=== PATIENT | female | born 1980 | race Caucasian/White ===

== ENCOUNTER 2018-11-09 03:07 | Outpatient (CLI) | payer MEDICAID, SELFPAY | END 2018-11-09 03:27 | PROVIDERS: PCP Student in an Organized Health Care Education/Training Program; Visit Provider Nurse Practitioner Family | DX: R69 Illness, unspecified (principal) ==

== ENCOUNTER 2019-03-16 20:26 | Emergency (ER) | payer MEDICAID, SELFPAY ==
[2019-03-16 20:32] VITALS: BP 130/80; PULSE 88; RESP 18; TEMP 36.8; O2SAT 97
--- NOTE | 2019-03-16 20:37 | ED.GENADUL_ITS ---
Discharge Plan Disposition Patient Disposition: HOME Condition: Good Discharge Details Chief Complaint: Laceration Clinical Impression: Avulsion of fingertip Primary Care Provider: Emily Gruber ED Provider: Chuy Pattersons and New Rx's Prescriptions: New ibuprofen 200 mg tablet 600 mg PO Q8H PRN (Reason: pain) Qty: 20 RF: 0 acetaminophen 500 mg tablet 1,000 mg PO Q8H PRN (Reason: pain) Qty: 20 RF: 0 Discharge Instructions Additional Instructions: Leave dressing on for the next 24 hours. May begin dressing change but try to leave the Xeroform in place. May remove Xeroform on Monday. Keep wound clean and dry. It should heal without issue as the nail matrix is intact. Follow-up with primary care as needed. Return to ED for signs of infection which include increasing pain, swelling, redness, fever. Referrals: Emily Gruber CRNA [Primary Care Provider] - Discharge Data Discharge Date/Time-TO BE ENTERED AT DEPARTURE: 03/16/19 21:44 Medical Decision Making A digital block with 2% lidocaine was done to the left index finger. Patient soaked her finger in saline. I then evaluated the wound more closely. She has essentially shaved off the distal part of her nail, nailbed and tip. However, it is quite superficial. There is no bony exposure whatsoever. There is no other injury present. Hand is otherwise neurovascularly intact. Xeroform dressing was applied. Patient instructed to leave the Xeroform on for 2 days. She may do a dressing change tomorrow and reapply new dressing while leaving Xeroform present. She may then remove the Xeroform and begin just simple dressing changes. The nail should grow back without difficulty as the matrix and cuticle are intact. She is asked to return to ED if there is any sign of infection. May use acetaminophen or ibuprofen as needed for pain. HPI General Mode of arrival: ambulatory . Date/Time Provider Initiated Documentation: 03/16/19 20:37 . Limitations to Documentation: no limitations . Information obtained by: patient and RN notes reviewed . HPI Narrative: Patient presents to ED with injury to her left index finger. Patient was cutting food with a brand-new sharp knife. She inadvertently sliced the tip of her left index finger. Bleeding is now controlled but she presents for evaluation. She is right-hand dominant. Related Data Home Medications Medication Instructions Recorded Confirmed acetaminophen 1,000 mg PO Q8H PRN #20 tab 03/16/19 ibuprofen 600 mg PO Q8H PRN #20 tab 03/16/19 Previous Rx's Medication Instructions Recorded acetaminophen 1,000 mg PO Q8H PRN #20 tab 03/16/19 ibuprofen 600 mg PO Q8H PRN #20 tab 03/16/19 Allergies Allergy/AdvReac Type Severity Reaction Status Date / Time Penicillins Allergy Unverified 03/16/19 20:36 General Stated Complaint: Laceration MARGO: 4 Review of Systems Musculoskeletal Denies tingling Integumentary/Breasts Reports wounds Neurologic Denies sensory deficit, Denies tingling and Denies paresthesias PFSH Social History Smoking/Tobacco Use Status: Former Tobacco Use Alcohol Intake: current Alcohol Intake frequency: a few times a week Substance use type: does not use Do you feel safe at home: Yes Do you feel safe in your relationship?: Yes Exam Const General: cooperative and comfortable Orientation: alert and oriented x3 Extrem Other: Left index finger shows injury to the tip with loss of nail present. No other injury noted. No bony exposure. Course Vital Signs Temperature 98.2 F 03/16/19 20:32 Pulse 88 03/16/19 20:32 Respiratory Rate 18 03/16/19 20:32 Blood Pressure 130/80 03/16/19 20:32 Pulse Oximetry 97 03/16/19 20:32 Temperature 98.2 F 03/16/19 20:32 Pulse 88 03/16/19 20:32 Respiratory Rate 18 03/16/19 20:32 Blood Pressure 130/80 03/16/19 20:32 Pulse Oximetry 97 03/16/19 20:32 Oxygen Delivery Method Room Air 03/16/19 20:32 Oxygen Flow Rate 0 03/16/19 20:32 Procedures Nerve Block Nerve Block 1: Local Anesthetic: Lidocaine 2% Amount of anesthesia used (mL): 2 Side: left Nerve Blocks: digital Procedure Successful: Yes Patient Tolerated Procedure: well Complications: none
[2019-03-16 21:36] VITALS: BP 130/80; PULSE 88; RESP 18; TEMP 36.8; O2SAT 97
== END 2019-03-16 21:44 | disposition home or self-care (01) ==
PROVIDERS: Emergency Provider Emergency Medicine; PCP Student in an Organized Health Care Education/Training Program
DX: S61.311A Laceration without foreign body of left index finger with damage to nail, initial encounter (principal); W26.0XXA Contact with knife, initial encounter
CPT/HCPCS: 99282

== ENCOUNTER 2019-04-02 21:36 | Emergency (ER) | payer MEDICAID, SELFPAY ==
[2019-04-02 21:46] VITALS: BP 142/88; PULSE 107; RESP 18; TEMP 37.8; O2SAT 99
--- NOTE | 2019-04-02 22:06 | ED.GENADUL_ITS ---
Discharge Plan Disposition Patient Disposition: HOME Condition: Good Discharge Details Chief Complaint: Abd Prob Clinical Impression: Abdominal pain Primary Care Provider: Ham Gruber ED Provider: Chuy Patterson Meds and New Rx's Prescriptions: No Action ibuprofen 200 mg tablet 600 mg PO Q8H PRN (Reason: pain) Qty: 20 RF: 0 acetaminophen 500 mg tablet 1,000 mg PO Q8H PRN (Reason: pain) Qty: 20 RF: 0 Discharge Instructions Instructions: Abdominal Pain (ED) Additional Instructions: Laboratory studies look fine. Urine is not infected. CT scan shows a normal appendix. There is some evidence of probable mesenteric adenitis which should resolve on its own. We will simply fluids to stay hydrated. Use ibuprofen or acetaminophen for pain. Follow-up with your primary care next week if not better. Return to ED if you develop worsening pain, fever, vomiting. Referrals: Ham Gruber NP [Primary Care Provider] - Discharge Data Discharge Date/Time-TO BE ENTERED AT DEPARTURE: 04/03/19 00:43 Medical Decision Making <Nilesh Marquez NP - Last Filed: 04/04/19 17:11> Patient presenting to the emergency department for chief complaint of abdominal pain. Patient reports that yesterday evening she started having what she felt was gas pains but this is become persistent throughout the day today. Patient does note some mild nausea. Patient denies any vomiting, lack of appetite states that pain is worse with standing position or movement along with bumpy car ride but lying flat does seem to alleviate pain. Physical exam is positive for tenderness at McBurney's point also periumbilical tenderness. Patient does have some guarding to the right lower quadrant, otherwise nondiagnostic unremarkable exam. Plan to check labs, urinalysis, and CT imaging of the abdomen for concern of possible early appendicitis. Patient is mildly tachycardic and has temp of 37.8 but otherwise is stable. Patient denies any need for pain medication pending results patient given Zofran for nausea. Review of labs showed no leukocytosis, unremarkable CMP, UA with trace leukocytes but otherwise nondiagnostic. Culture was reflexed due to 3-5 WBCs be given the patient is asymptomatic I do not feel that she is suffering from urinary tract infection. Plan to wait on culture. Patient tolerated p.o. intake of oral contrast. Patient pending CT imaging. <Chuy Patterson MD - Last Filed: 04/03/19 00:35> Patient signed out to me for follow-up of CT scan. She had presented with abdominal pain for 1 day periumbilical and right lower quadrant in nature. No other associated symptoms. She has not required pain medication here. CT scan shows a right adrenal mass which is likely a myolipoma or lipoma and no further imaging is required per radiology. There is a physiologic 15 mm follicular cyst in the right ovary. The appendix is normal. There is some prominence of the mesenteric node with some mesenteric stranding suspicious for mild mesenteric lymphadenitis. This may be the source of the patient's discomfort. I have discussed all findings with the patient. Recommend using acetaminophen and ibuprofen for discomfort. Stay hydrated. Follow-up with primary care next week if not better. Return to ED for worsening pain, vomiting, fever, other concerns. Lab Data Lab results reviewed: Yes I reviewed the patient's lab results. HPI <Nilesh Marquez NP - Last Filed: 04/04/19 17:11> General Mode of arrival: ambulatory . Date/Time Provider Initiated Documentation: 04/02/19 21:52 . Limitations to Documentation: no limitations . Information obtained by: patient and RN notes reviewed . History of Present Illness 38 year old F presents to the emergency department with the chief complaint of Abdominal pain, described as moderate, with intensity rated at 6. Quality is described as aching and sharp, and is localized to the abdomen . Patient started experiencing this day(s) (1) and it has been constant. No relieving factors improve symptom(s), Patient notes no other symptoms.. Patient did receive the following treatments prior to arrival, none Related Data Home Medications Medication Instructions Recorded Confirmed acetaminophen 1,000 mg PO Q8H PRN #20 tab 03/16/19 04/02/19 ibuprofen 600 mg PO Q8H PRN #20 tab 03/16/19 04/02/19 Previous Rx's Medication Instructions Recorded acetaminophen 1,000 mg PO Q8H PRN #20 tab 03/16/19 ibuprofen 600 mg PO Q8H PRN #20 tab 03/16/19 Allergies Allergy/AdvReac Type Severity Reaction Status Date / Time Penicillins Allergy Severe Hives Unverified 04/02/19 21:51 General Stated Complaint: Abd Prob MARGO: 3 Review of Systems <Nilesh Marquez NP - Last Filed: 04/04/19 17:11> Constitutional Denies chills, Denies fever(s) and Denies poor appetite Cardiovascular Denies chest pain and Denies dyspnea Respiratory Denies cough and Denies dyspnea Gastrointestinal Reports as per HPI, Reports abdominal pain, Denies melena, Denies change in bowel habits, Denies constipation, Reports cramping, Denies diarrhea, Reports nausea and Denies vomiting Genitourinary Denies dysuria, Denies pelvic pain, Denies urinary urgency and Denies vaginal discharge Integumentary/Breasts Denies rash PFSH <Nilesh Marquez NP - Last Filed: 04/04/19 17:11> Social History Smoking/Tobacco Use Status: Former Tobacco Use Alcohol Intake: current Alcohol Intake frequency: a few times a week Alcohol type: beer Drug use: Never Substance use type: does not use Do you feel safe at home: Yes Do you feel safe in your relationship?: Yes Exam <Nilesh Marquez NP - Last Filed: 04/04/19 17:11> Const General: cooperative Orientation: alert, awake and oriented x3 Resp Effort & Inspection: normal respiratory effort and able to speak in complete sentences Auscultation: clear to auscultation bilaterally Cardio Rate: regular rate Rhythm: regular rhythm Heart Sounds: S1 normal, S2 normal, no click, no gallops, no murmurs and no rubs GI Palpation: soft, no hepatosplenomegaly, not firm, guarding in the RLQ, no masses, no pulsatile masses, not rigid, no splenomegaly and tender at McBurney's point and periumbilically; Kate's sign negative, with no rebound tenderness and Rovsing's sign negative Auscultation: normal bowel sounds Back/Spine/Pelvis Back: no CVA tenderness Neuro General: alert, awake, oriented x3, gait normal and moves all extremities Course <Nilesh Marquez NP - Last Filed: 04/04/19 17:11> Vital Signs Temperature 37.8 C H 04/02/19 21:46 Pulse 107 H 04/02/19 21:46 Respiratory Rate 18 04/02/19 21:46 Blood Pressure 142/88 H 04/02/19 21:46 Pulse Oximetry 99 04/02/19 21:46 Temperature 37.8 C H 04/02/19 21:46 Temperature Source Skin 04/02/19 21:46 Pulse 107 H 04/02/19 21:46 Respiratory Rate 18 04/02/19 21:46 Blood Pressure 142/88 H 04/02/19 21:46 Blood Pressure Position Sitting 04/02/19 21:46 Pulse Oximetry 99 04/02/19 21:46 Oxygen Delivery Method Room Air 04/02/19 21:46 Oxygen Flow Rate 0 04/02/19 21:46 Pain Level 7 04/02/19 21:46 Sign Out <Nilesh Marquez NP - Last Filed: 04/04/19 17:11> Sign Out Data: Sign Out Comment: Patient signed out to Dr. Patterson pending CT imaging results, any further treatment or stabilization as needed. Last updated by Nilesh Marquez NP at 04/02/19 23:44
[2019-04-02 22:45] LABS: Abs Immature Grans 0.04 k/cumm (0.0-0.09); Absolute Basophil Count 0.01 k/cumm (0.0-0.2); Absolute Eosinophil Count 0.11 k/cumm (0.0-0.7); Absolute Lymphocyte Count 2.46 k/cumm (1.2-3.4); Absolute Monocyte Count 0.65 k/cumm (0.11-0.7); Absolute Neutrophil Count 6.23 k/cumm (1.2-6.7); Basophils % 0.1; Eosinophils % 1.2; HCT 38.7 % (36.0-46.0); HGB 12.3 g/dL (12.0-15.5); Immature Grans % 0.4; Lymphocytes % 25.9; Mean Corp. HGB Concentration 31.8 g/dL (32.0-36.0); Mean Corpuscular Hemoglobin 27.7 pg (27.0-33.0); Mean Corpuscular Volume 87.2 fL (80-95); Mean Platelet Volume 11.1 fL (8.0-11.0); Monocytes % 6.8; Neutrophils % 65.6; Platelet Count 238 x1000/uL (130-400); RBC 4.44 m/cumm (4.00-5.20); RBC Distribution Width 14.2 % (11.7-14.6)
[2019-04-02 22:47] LABS: Bilirubin Negative (Negative); Blood Negative (Negative); Clarity Clear (Clear); Glucose Negative (Negative); Ketones Negative (Negative); Leukocyte Esterase Trace (Negative); Nitrite Negative (Negative); Specific Gravity 1.025 (1.005-1.025); Urobilinogen 0.2 EU/dL (Up TO 0.2)
[2019-04-02 22:56] LABS: Bacteria Rare HPF (Negative); C & S Indicated? Yes; Casts Negative LPF (Negative); Crystals Negative HPF (Negative); Epithelial Cells Few HPF (Negative); Mucus Negative (Negative); Other Cells Negative (Negative); RBC 0-2 (0-2)
[2019-04-02 23:02] LABS: ALT 28 U/L (14-59); AST 15 U/L (15-37); Albumin 3.7 g/dL (3.4-5.0); Alkaline Phosphatase 101 U/L (46-116); Anion Gap 9.8 mmol/L (3-11); BUN 15 mg/dL (7-18); Bilirubin, Total 0.2 mg/dL (0.2-1.0); CO2 25.2 mmol/L (21.0-32.0); CREATININE 0.85 mg/dL (0.55-1.02); Chloride 104 mmol/L (98-107); Glucose 103 mg/dL (70-100); Lipase 85 U/L (73-393); Potassium 4.1 mmol/L (3.5-5.1); Sodium 139 mmol/L (136-145); Total Protein 8.1 g/dL (6.4-8.2)
[2019-04-02] MEDS: Omnipaque 350 MG/ML 50 ML BTL PO (23:43)
[2019-04-02] MEDS: Omnipaque 350 MG/ML 100 ML BTL IJ (23:43)
[2019-04-02] MEDS: Breeza Beverage 473 ML BTL PO (23:44)
--- NOTE | 2019-04-02 23:45 | DI.CT_ITS ---
SYMPTOM/DIAGNOSIS: ABD PAIN, PERIUMBILICAL, RLQ, NAUSEA ABDOMEN AND PELVIC CT: CT scan of the abdomen and pelvis was performed following the uneventful administration of intravenous and oral contrast material. No acute findings are seen in the lung bases. The liver is normal in size. No hepatic mass is seen. The portal, superior mesenteric and splenic veins are patent. The gallbladder is negative. There is no biliary ductal dilatation. The pancreas and spleen are unremarkable. There does appear to be a 1.2 cm. fat density right adrenal mass, most suggestive of a lipoma or adrenal myolipoma. The kidneys show normal and symmetric enhancement. No evidence of a solid renal mass or obstruction. The urinary bladder is intact. The reproductive organs are unremarkable. The abdominal aorta is of normal caliber. No significant abdominal or pelvic ascites or pneumoperitoneum is seen. There may be mildly prominent lymph nodes in the mesentery. The bowel shows no evidence of obstruction or inflammation. There is a normal appendix present. No acute osseous abnormality is identified. IMPRESSION: 1. Normal appendix. 2. Question of mildly prominent lymph nodes in the mesentery. Mesenteric adenitis or mesenteritis cannot be excluded.
--- NOTE | 2019-04-03 00:19 | DI.VRAD_ITS ---
EXAM: CT Abdomen and Pelvis With Contrast EXAM DATE/TIME: 04/02/2019 10:06 PM CLINICAL HISTORY: 38 years old, female; Localized; Other: Rlq and periumbilical; Patient HX: Nausea and abdominal pain since yesterday TECHNIQUE: Imaging protocol: Computed tomography images of the abdomen and pelvis with intravenous contrast. Radiation optimization: All CT scans at this facility use at least one of these dose optimization techniques: automated exposure control; mA and/or kV adjustment per patient size (includes targeted exams where dose is matched to clinical indication); or iterative reconstruction. Contrast material: OMNIPAQUE 350; Contrast volume: 100 ml; Contrast route: IV RAC; COMPARISON: No relevant prior studies available. FINDINGS: Lungs: Visualized lung bases are clear. Heart: Heart size normal. Liver: Normal size and contour. No mass lesions. Gallbladder and bile ducts: Normal. No calcified stones. No ductal dilation. Pancreas: Normal. No inflammatory changes or ductal dilation. Spleen: Normal. No splenomegaly. Adrenals: The left adrenal gland is normal. There is a 12 mm fat density lesion in the right adrenal gland with punctate calcification. This is consistent with a benign adrenal myelolipoma or lipoma. No further imaging assessment is required. Kidneys and ureters: Normal. No hydronephrosis or hydroureter. No urinary tract stones are identified. Stomach and bowel: The visualized distal esophagus and stomach are normal. The small bowel is normal with no evidence of obstruction. No acute colonic abnormalities. Appendix: The appendix is normal in caliber and demonstrates no evidence of appendicitis. Intraperitoneal space: No free fluid or air. Vasculature: Normal. No abdominal aortic aneurysm. Lymph nodes: Mildly prominent central mesenteric nodes with faint mesenteric stranding suspicious for mild mesenteric adenitis/mesenteritis. No associated fluid collections or bowel wall abnormalities. Bladder: Unremarkable as visualized. Reproductive: 15 mm follicle in the right ovary, within physiologic range. The uterus and left ovary were unremarkable. Bones/joints: No acute osseous abnormalities. Soft tissues: Unremarkable. IMPRESSION: 1. Mildly prominent central mesenteric nodes with faint mesenteric stranding suspicious for mild mesenteric adenitis/mesenteritis. No associated fluid collections or bowel wall abnormalities. 2. Normal appendix. 3. 12 mm fat density lesion in the right adrenal gland consistent with benign adrenal lipoma or myelolipoma. No further imaging assessment is required. Dictated and Authenticated by: Huey Guzman MD. Ordering:SVETA Galloway MD
[2019-04-03 00:40] VITALS: BP 132/76; PULSE 72; RESP 15; TEMP 36.2; O2SAT 99
== END 2019-04-03 00:43 | disposition home or self-care (01) ==
PROVIDERS: Nurse Practitioner Family; Emergency Provider Emergency Medicine; PCP Nurse Practitioner Family
DX: R10.815 Periumbilic abdominal tenderness (principal); R10.31 Right lower quadrant pain; R11.0 Nausea; N83.01 Follicular cyst of right ovary
CPT/HCPCS: 36415; 80053; 83690; 99285; 74177; 81003; 81015; 85025; 87086; 99284; J3490; Q9967

== ENCOUNTER 2019-05-31 10:48 | Outpatient (REF) | payer MEDICAID, SELFPAY ==
[2019-05-31 13:20] LABS: HCT 39.7 % (36.0-46.0); HGB 12.4 g/dL (12.0-15.5); Mean Corp. HGB Concentration 31.2 g/dL (32.0-36.0); Mean Corpuscular Hemoglobin 27.3 pg (27.0-33.0); Mean Corpuscular Volume 87.4 fL (80-95); Mean Platelet Volume 11.4 fL (8.0-11.0); Platelet Count 252 x1000/uL (130-400); RBC 4.54 m/cumm (4.00-5.20); RBC Distribution Width 14.3 % (11.7-14.6); White Blood Cell Count 6.91 k/cumm (4.4-10.8)
[2019-05-31 13:45] LABS: ALT 29 U/L (14-59); AST 13 U/L (15-37); Albumin 3.9 g/dL (3.4-5.0); Alkaline Phosphatase 108 U/L (46-116); Anion Gap 9.4 mmol/L (3-11); BUN 15 mg/dL (7-18); Bilirubin, Total 0.3 mg/dL (0.2-1.0); CO2 26.6 mmol/L (21.0-32.0); CREATININE 0.69 mg/dL (0.55-1.02); Calcium 9.4 mg/dL (8.5-10.1); Calculated LDL 94 mg/dL; Chloride 104 mmol/L (98-107); Cholesterol 159 mg/dL (50-200); Glucose 99 mg/dL (70-100); HDL Cholesterol 52 mg/dL (40-60); Sodium 140 mmol/L (136-145); Total Protein 7.9 g/dL (6.4-8.2); Triglyceride 67 mg/dL (30-150)
== END 2019-05-31 11:08 ==
LOC: NCHCN 10:48
PROVIDERS: PCP Nurse Practitioner Family; Visit Provider Nurse Practitioner Family
DX: R00.2 Palpitations (principal); Z00.00 Encounter for general adult medical examination without abnormal findings
CPT/HCPCS: 80053; 80061; 85027; 84443

== ENCOUNTER 2019-06-03 11:45 | Outpatient (CLI) | payer MEDICAID, SELFPAY ==
--- NOTE | 2019-06-03 08:58 | HOLT_ITS ---
Holter Monitor Report Holter Monitor Note: This is a 48-hour Holter monitor ordered for the indication of palpitations. ?The patient was in normal sinus rhythm for the majority of the recording time. Heart rate ranged from 59 bpm to 118 bpm with an average of 78 bpm ?There were no episodes of supraventricular tachycardia. There were rare (less than 1%) premature atrial contractions. There were no runs of multiple PACs in a row. ?There were no episodes of ventricular tachycardia. There were 2 single ventricular ectopic beats recorded ?There were no episodes of atrial fibrillation, no pauses greater than 3 seconds and no periods of high degree heart block. ?Patient diary events were associated with sinus rhythm and sinus tachycardia. Date of service: 06/06/19 Time of Service: 08:27 CC: Dictated by: VIC HALL MD Dictated:: [id number] <Electronically signed by Vic Hall M.D.> 06/06/19828
== END 2019-06-03 12:05 ==
PROVIDERS: PCP Nurse Practitioner Family; Visit Provider Nurse Practitioner Family
DX: R00.2 Palpitations (principal); I49.1 Atrial premature depolarization; I49.3 Ventricular premature depolarization
CPT/HCPCS: 93225

== ENCOUNTER 2019-06-05 16:08 | Outpatient (CLI) | payer MEDICAID, SELFPAY | END 2019-06-05 16:28 | PROVIDERS: PCP Student in an Organized Health Care Education/Training Program; Visit Provider Nurse Practitioner Family | DX: R00.2 Palpitations (principal); I49.1 Atrial premature depolarization; I49.3 Ventricular premature depolarization | CPT/HCPCS: 93226 ==

== ENCOUNTER 2019-09-24 17:24 | Emergency (ER) | payer MEDICAID, SELFPAY ==
[2019-09-24] VITALS (32 sets, daily range): BP systolic 124–159; BP diastolic 66–95; PULSE 90–128; RESP 7–37; TEMP 36.5; O2SAT 93–100
--- NOTE | 2019-09-24 17:45 | DI.RAD_ITS ---
EXAM: XR CHEST 2V PA LATERAL CLINICAL HISTORY: Palpitations. TECHNIQUE: 2D digital imaging was performed. COMPARISON: No exams were available for comparison FINDINGS: LUNGS: Clear. No pleural abnormality seen. HEART: Normal. MEDIASTINUM: Normal. OTHER FINDINGS:Normal. BONE:Normal. IMPRESSION: No acute pulmonary findings.
--- NOTE | 2019-09-24 17:47 | ED.GENADUL_ITS ---
Discharge Plan Disposition Patient Disposition: HOME Condition: Good Discharge Details Chief Complaint: Palpitatns Clinical Impression: Palpitations, Atypical chest pain, History of anxiety Primary Care Provider: Ham Gruber ED Provider: Ilene Sierra Home Meds and New Rx's Prescriptions: Continued pantoprazole [Protonix] 40 MG tablet,delayed release (DR/EC) 40 mg PO QD 90 Days Qty: 90 RF: 1 ibuprofen 200 mg tablet 600 mg PO Q8H PRN (Reason: pain) Qty: 20 RF: 0 acetaminophen [Tylenol] 325 MG tablet 650 mg PO Q4H PRN PRNRF: 0 buspirone 5 mg Tablet 5 mg PO TID RF: 0 Discharge Instructions Instructions: Chest Pain (ED), Stress (ED), Anxiety (ED) Additional Instructions: Take the Ativan as needed and directed for feelings of anxiety or to help with sleep. Drink plenty of fluids and get plenty of rest. Call your primary care doctor's office tomorrow to schedule follow-up appointment for reevaluation within the next week. Return to the emergency department if you develop any worsening or new concerning symptoms. Stand Alone Forms: Work Release Discharge Data Discharge Physician: Ilene Sierra Medical Decision Making <Sameer Asher MD - Last Filed: 09/24/19 19:53> 39-year-old female presents from home with her . She is a history of palpitations in the past, they have worsened over the past day and a half. They are associated with anxiety and some increased stressors both at home and at work. She does not have significant chest pain and no shortness of breath. Initial pulse 123, approximately 105 while at rest. She is afebrile with normal oxygenation. Her exam is otherwise reassuring. I reviewed records including Holter monitor obtained in May 2019: Holter Monitor Note: This is a 48-hour Holter monitor ordered for the indication of palpitations. ?The patient was in normal sinus rhythm for the majority of the recording time. Heart rate ranged from 59 bpm to 118 bpm with an average of 78 bpm ?There were no episodes of supraventricular tachycardia. There were rare (less than 1%) premature atrial contractions. There were no runs of multiple PACs in a row. ?There were no episodes of ventricular tachycardia. There were 2 single ventricular ectopic beats recorded ?There were no episodes of atrial fibrillation, no pauses greater than 3 seconds and no periods of high degree heart block. ?Patient diary events were associated with sinus rhythm and sinus tachycardia. In the ER today, patient had IV access established, placed on a monitoring coordinator, given fluid bolus and referred for chest x-ray and laboratory testing. Differential diagnosis includes dehydration, electrolyte abnormality, ACS, must at least consider the possibility of PE although I feel this is unlikely. Chest x-ray without acute findings, see formal report. Laboratories: Urinalysis unremarkable. CBC with white count 8, hematocrit 40, platelets 252, sodium 140, potassium 3.4, chloride 103, bicarb 27, BUN 16, creatinine 0.7. LFTs unremarkable. Troponin negative. TSH 0.81. D-dimer is elevated at 836. I have ordered a CAT scan of the chest and patient also has a second/repeat troponin pending. I will sign out the case out to Dr. Sierra. Please see her note regarding details of the additional diagnostic findings. Lab Data Lab results reviewed: Yes I reviewed the patient's lab results. Labs: Laboratory Results - last 24 hr 09/24/19 09/24/19 09/24/19 17:35 17:35 17:35 WBC 8.98 RBC 4.74 Hgb 13.1 Hct 40.2 MCV 84.8 MCH 27.6 MCHC 32.6 RDW 14.8 H Plt Count 252 MPV 10.7 Immature Gran % 0.2 Neutrophils % 62.7 Lymphocytes % 28.2 Monocytes % 6.9 Eosinophils % 1.9 Basophils % 0.1 Absolute Neutrophils 5.63 Absolute Lymphocytes 2.53 Absolute Monocytes 0.62 Absolute Eosinophils 0.17 Absolute Basophils 0.01 Sodium 140 Potassium 3.4 L Chloride 103 Carbon Dioxide 27.5 Anion Gap 9.5 BUN 16 Creatinine 0.79 Estimated GFR/1.73 m2 >= 60.00 Glucose 89 Calcium 9.3 Magnesium 1.9 Total Bilirubin 0.2 AST 17 ALT 36 Alkaline Phosphatase 111 Troponin I < 0.05 Total Protein 8.3 H Albumin 4.1 Urine Color Urine Clarity Urine pH Ur Specific [place] Urine Protein Urine Ketones Urine Blood Urine Nitrite Urine Bilirubin Urine Urobilinogen Ur Leukocyte Esterase Urine Glucose 09/24/19 17:35 WBC RBC Hgb Hct MCV MCH MCHC RDW Plt Count MPV Immature Gran % Neutrophils % Lymphocytes % Monocytes % Eosinophils % Basophils % Absolute Neutrophils Absolute Lymphocytes Absolute Monocytes Absolute Eosinophils Absolute Basophils Sodium Potassium Chloride Carbon Dioxide Anion Gap BUN Creatinine Estimated GFR/1.73 m2 Glucose Calcium Magnesium Total Bilirubin AST ALT Alkaline Phosphatase Troponin I Total Protein Albumin Urine Color Yellow Urine Clarity Clear Urine pH 6.0 Ur Specific [place] 1.010 Urine Protein Negative Urine Ketones Negative Urine Blood Negative Urine Nitrite Negative Urine Bilirubin Negative Urine Urobilinogen 0.2 Ur Leukocyte Esterase Negative Urine Glucose Negative ECG Data Attestation: I personally reviewed and interpreted this ECG (s) as follows: Interpretation: Sinus tachycardia, rate of 111, the QRS is narrow, there is no ST segment elevation present, there is isolated T wave inversion in lead III <Ilene Sierra DO - Last Filed: 09/24/19 22:45> 1999 --please see Dr. Asher's note for initial presentation, exam and plan. 39-year-old female with a history of asthma and anxiety recently started on BuSpar within the past month who presents with intermittent palpitations, chest pain or shortness of breath today. She states she has had ongoing palpitations for 10 years, but states this was worse with the chest pain today. She does admit to a large amount of stress with her job, her 's job and 5 kids at home. She states she has not been sleeping well. Denies alcohol or drug use. Heart rate on arrival 120s. EKG noted sinus tach but no acute ST ischemic changes. D-dimer elevated and referred for CT chest to rule out PE. Case endorsed to follow-up on repeat troponin and EKG and follow-up on CT results. 2139 --repeat EKG notes a rate of 102 and sinus tach with no acute ST ischemic changes. CT chest negative for PE or other acute findings. Repeat troponin negative. Patient reassessed -she states she feels better. During our conversation, patient became tearful as she was discussing that she came here to make sure everything was okay as she has family at home. Discussed that anxiety, dehydration, lack of sleep, and stress can cause any of the symptoms. Advised it would be beneficial to follow-up with her primary care doctor for further evaluation and consideration for stress test if symptoms persist or worsen. She was given a dose of Ativan here and had significant improvement. She was given 2 tabs for home to help with sleep as needed. She was advised to return here with any concerns. Medical Records Medical records reviewed: Yes I reviewed the patient's medical records. Imaging Data Radiologic Study: Radiologist's impression: XR Chest, 2 Views Exam date and time: 09/24/2019 6:03 PM Age: 39 years old Clinical indication: Other: Palpatations TECHNIQUE: Imaging protocol: XR of the chest Views: 2 views. COMPARISON: No relevant prior studies available. FINDINGS: Lungs: Unremarkable. No consolidation. Pleural space: Unremarkable. No pleural effusion. No pneumothorax. Heart/Mediastinum: Unremarkable. No cardiomegaly. Bones/joints: Unremarkable. IMPRESSION: No acute findings. CT Angiography Chest With Contrast Exam date and time: 09/24/2019 7:50 PM Age: 39 years old Clinical indication: Type not specified; Patient HX: Upper chest pain and discomfort for a month or so TECHNIQUE: Imaging protocol: Computed tomographic angiography of the chest with intravenous contrast. 3D rendering: MIP and/or 3D reconstructed images were created by the technologist. Radiation optimization: All CT scans at this facility use at least one of these dose optimization techniques: automated exposure control; mA and/or kV adjustment per patient size (includes targeted exams where dose is matched to clinical indication); or iterative reconstruction. Contrast material: OMNIPAQUE 350; Contrast volume: 100 ml; Contrast route: IV; COMPARISON: CR XR CHEST 2V PA LATERAL 09/24/2019 6:03 PM FINDINGS: Pulmonary arteries: There is adequate opacification of blood within the main pulmonary outflow tract, right and left pulmonary arteries and major lobar and segmental branches to both lungs with no pulmonary embolism detected. Aorta: Unremarkable. No aortic aneurysm. No aortic dissection. Lungs: Unremarkable. No consolidation. No masses. Pleural space: Unremarkable. No pneumothorax. No pleural effusion. Heart: Unremarkable. No cardiomegaly. No pericardial effusion. Lymph nodes: Unremarkable. No enlarged lymph nodes. Bones/joints: Unremarkable. No acute fracture. Soft tissues: Unremarkable. IMPRESSION: No acute pulmonary artery embolism is identified. Lab Data Lab results reviewed: Yes I reviewed the patient's lab results. Labs: Laboratory Tests Range/Units 09/24/19 09/24/19 09/24/19 17:35 17:35 17:35 WBC (4.4-10.8) k/cumm 8.98 RBC (4.00-5.20) m/cumm 4.74 Hgb (12.0-15.5) g/dL 13.1 Hct (36.0-46.0) % 40.2 MCV (80-95) fL 84.8 MCH (27.0-33.0) pg 27.6 MCHC (32.0-36.0) g/dL 32.6 RDW (11.7-14.6) % 14.8 H Plt Count (130-400) x1000/uL 252 MPV (8.0-11.0) fL 10.7 Immature Gran % % 0.2 Neutrophils % 62.7 Lymphocytes % 28.2 Monocytes % 6.9 Eosinophils % 1.9 Basophils % 0.1 Absolute Neutrophils (1.2-6.7) k/cumm 5.63 Absolute Lymphocytes (1.2-3.4) k/cumm 2.53 Absolute Monocytes (0.11-0.7) k/cumm 0.62 Absolute Eosinophils (0.0-0.7) k/cumm 0.17 Absolute Basophils (0.0-0.2) k/cumm 0.01 D-Dimer (<500) ng/mlFEU Sodium (136-145) mmol/L 140 Potassium (3.5-5.1) mmol/L 3.4 L Chloride (98-107) mmol/L 103 Carbon Dioxide (21.0-32.0) mmol/L 27.5 Anion Gap (3-11) mmol/L 9.5 BUN (7-18) mg/dL 16 Creatinine (0.55-1.02) mg/dL 0.79 Estimated GFR/1.73 m2 (mL/min/1.73m2) >= 60.00 Glucose (74-106) mg/dL 89 Calcium (8.5-10.1) mg/dL 9.3 Magnesium (1.8-2.4) mg/dL 1.9 Total Bilirubin (0.2-1.0) mg/dL 0.2 AST (15-37) U/L 17 ALT (14-59) U/L 36 Alkaline Phosphatase (46-116) U/L 111 Troponin I (<0.06) ng/Ml < 0.05 Total Protein (6.4-8.2) g/dL 8.3 H Albumin (3.4-5.0) g/dL 4.1 TSH (0.36-3.74) uIU/mL Urine Color (Yellow) Urine Clarity (Clear) Urine pH (5-8) Ur Specific [place] (1.005-1.025) Urine Protein (Negative) mg/dL Urine Ketones (Negative) mg/dL Urine Blood (Negative) Urine Nitrite (Negative) Urine Bilirubin (Negative) Urine Urobilinogen (Up TO 0.2) EU/dL Ur Leukocyte Esterase (Negative) Urine Glucose (Negative) mg/dL Range/Units 09/24/19 09/24/19 09/24/19 17:35 17:36 17:36 WBC (4.4-10.8) k/cumm RBC (4.00-5.20) m/cumm Hgb (12.0-15.5) g/dL Hct (36.0-46.0) % MCV (80-95) fL MCH (27.0-33.0) pg MCHC (32.0-36.0) g/dL RDW (11.7-14.6) % Plt Count (130-400) x1000/uL MPV (8.0-11.0) fL Immature Gran % % Neutrophils % Lymphocytes % Monocytes % Eosinophils % Basophils % Absolute Neutrophils (1.2-6.7) k/cumm Absolute Lymphocytes (1.2-3.4) k/cumm Absolute Monocytes (0.11-0.7) k/cumm Absolute Eosinophils (0.0-0.7) k/cumm Absolute Basophils (0.0-0.2) k/cumm D-Dimer (<500) ng/mlFEU 836 H Sodium (136-145) mmol/L Potassium (3.5-5.1) mmol/L Chloride (98-107) mmol/L Carbon Dioxide (21.0-32.0) mmol/L Anion Gap (3-11) mmol/L BUN (7-18) mg/dL Creatinine (0.55-1.02) mg/dL Estimated GFR/1.73 m2 (mL/min/1.73m2) Glucose (74-106) mg/dL Calcium (8.5-10.1) mg/dL Magnesium (1.8-2.4) mg/dL Total Bilirubin (0.2-1.0) mg/dL AST (15-37) U/L ALT (14-59) U/L Alkaline Phosphatase (46-116) U/L Troponin I (<0.06) ng/Ml Total Protein (6.4-8.2) g/dL Albumin (3.4-5.0) g/dL TSH (0.36-3.74) uIU/mL 0.81 Urine Color (Yellow) Yellow Urine Clarity (Clear) Clear Urine pH (5-8) 6.0 Ur Specific [place] (1.005-1.025) 1.010 Urine Protein (Negative) mg/dL Negative Urine Ketones (Negative) mg/dL Negative Urine Blood (Negative) Negative Urine Nitrite (Negative) Negative Urine Bilirubin (Negative) Negative Urine Urobilinogen (Up TO 0.2) EU/dL 0.2 Ur Leukocyte Esterase (Negative) Negative Urine Glucose (Negative) mg/dL Negative Range/Units 09/24/19 20:25 WBC (4.4-10.8) k/cumm RBC (4.00-5.20) m/cumm Hgb (12.0-15.5) g/dL Hct (36.0-46.0) % MCV (80-95) fL MCH (27.0-33.0) pg MCHC (32.0-36.0) g/dL RDW (11.7-14.6) % Plt Count (130-400) x1000/uL MPV (8.0-11.0) fL Immature Gran % % Neutrophils % Lymphocytes % Monocytes % Eosinophils % Basophils % Absolute Neutrophils (1.2-6.7) k/cumm Absolute Lymphocytes (1.2-3.4) k/cumm Absolute Monocytes (0.11-0.7) k/cumm Absolute Eosinophils (0.0-0.7) k/cumm Absolute Basophils (0.0-0.2) k/cumm D-Dimer (<500) ng/mlFEU Sodium (136-145) mmol/L Potassium (3.5-5.1) mmol/L Chloride (98-107) mmol/L Carbon Dioxide (21.0-32.0) mmol/L Anion Gap (3-11) mmol/L BUN (7-18) mg/dL Creatinine (0.55-1.02) mg/dL Estimated GFR/1.73 m2 (mL/min/1.73m2) Glucose (74-106) mg/dL Calcium (8.5-10.1) mg/dL Magnesium (1.8-2.4) mg/dL Total Bilirubin (0.2-1.0) mg/dL AST (15-37) U/L ALT (14-59) U/L Alkaline Phosphatase (46-116) U/L Troponin I (<0.06) ng/Ml < 0.05 Total Protein (6.4-8.2) g/dL Albumin (3.4-5.0) g/dL TSH (0.36-3.74) uIU/mL Urine Color (Yellow) Urine Clarity (Clear) Urine pH (5-8) Ur Specific [place] (1.005-1.025) Urine Protein (Negative) mg/dL Urine Ketones (Negative) mg/dL Urine Blood (Negative) Urine Nitrite (Negative) Urine Bilirubin (Negative) Urine Urobilinogen (Up TO 0.2) EU/dL Ur Leukocyte Esterase (Negative) Urine Glucose (Negative) mg/dL ECG Data Attestation: I personally reviewed and interpreted this ECG (s) as follows: Interpretation: #1 -- rate of 111bpm, sinus, no acute st elevation or dep ression, T wave inversion in lead III, ME 154, QTc 435, QRS 94. #2 -- rate of 102bpm, sinus, no acute st elevation or depression, ME 148, QTc 438, QRS 91. HPI <Sameer Asher MD - Last Filed: 09/24/19 19:53> General Mode of arrival: ambulatory . Date/Time Provider Initiated Documentation: 09/24/19 17:38 . Limitations to Documentation: no limitations . Information obtained by: patient . History of Present Illness 39 year old F presents to the emergency department with the chief complaint of Palpitations, anxiety, described as moderate and similar to prior episodes, and is localized to the chest. Patient reports no radiation. Patient started experiencing this hour(s) No relieving factors improve symptom(s), No exacerbating factors reported . Patient notes other (No leg pain or swelling); denies fever/chills and shortness of breath. Patient did receive the following treatments prior to arrival, none Related Data Home Medications Medication Instructions Recorded Confirmed pantoprazole [Protonix] 40 mg PO QD 90 Days #90 tab 07/10/17 09/24/19 acetaminophen [Tylenol] 650 mg PO Q4H PRN PRN tab 08/01/17 09/24/19 ibuprofen 600 mg PO Q8H PRN #20 tab 03/16/19 09/24/19 buspirone 5 mg PO TID 09/24/19 09/24/19 Previous Rx's Medication Instructions Recorded pantoprazole [Protonix] 40 mg PO QD 90 Days #90 tab 07/10/17 acetaminophen [Tylenol] 650 mg PO Q4H PRN PRN tab 08/01/17 ibuprofen 600 mg PO Q8H PRN #20 tab 03/16/19 Allergies Allergy/AdvReac Type Severity Reaction Status Date / Time Penicillins Allergy Intermediate Hives Unverified 09/24/19 17:38 morphine AdvReac Intermediate change in Unverified 09/24/19 17:38 BP General Stated Complaint: Palpitatns MARGO: 2 Review of Systems <Sameer Asher MD - Last Filed: 09/24/19 19:53> Narrative: 6 systems reviewed and otherwise negative PFSH <Sameer Asher MD - Last Filed: 09/24/19 19:53> Medical History Asthma Seasonal, winter. Uses Albuterol prn. H/O sebaceous cyst Left shoulder, episodic inflammatory outbreaks requiring incision and drainage. Hidradenitis suppurativa of left axilla Hidradenitis suppurativa of right axilla Family History Mother Thyroid disorder Grandmother Diabetes Daughter Age: 19 Lupus Daughter Age: 18 No problems noted. Daughter Age: 16 No problems noted. Daughter Age: 14 No problems noted. Social History Smoking/Tobacco Use Status: Former Tobacco Use Alcohol Intake: current Alcohol Intake frequency: a few times a week Alcohol type: beer Drug use: Never Substance use type: does not use Do you feel safe at home: Yes Do you feel safe in your relationship?: Yes Exam <Sameer Asher MD - Last Filed: 09/24/19 19:53> Narrative Exam Narrative: GEN: awake, alert, oriented 3. Pleasant, well groomed, interactive. HEAD: Normocephalic, atraumatic ENT: Mucous membranes moist, oropharynx unremarkable, External ear exam unremarkable EYES: PERRL, EOMI NECK: Full ROM, no SUSHMA, no menigismus CHEST/RESP: Nontender, clear to auscultation bilateral, no wheeze/rhonchi/rales CARDIOVASCULAR: Borderline tachycardia at rest, RRR, no murmur, rub marissa. 2+ Rad pulse bilateral ABDOMEN: Soft, nontender, no mass. +Bowel sounds EXT: Full ROM, no edema, no rash Neuro: Grossly normal neurologic exam, conversant, interactive. Psych: Speech fluent, thoughts congruent, affect normal Course <Sameer Asher MD - Last Filed: 09/24/19 19:53> Vital Signs Vital signs: Vital Signs Temperature 36.5 C 09/24/19 17:31 Pulse 123 H 09/24/19 17:31 Respiratory Rate 18 09/24/19 17:31 Blood Pressure 141/91 H 09/24/19 17:31 Pulse Oximetry 100 09/24/19 17:31 Temperature 36.5 C 09/24/19 17:31 Temperature Source Temporal Artery Scan 09/24/19 17:31 Pulse 123 H 09/24/19 17:31 Respiratory Rate 18 09/24/19 17:31 Respiratory Effort Non-Labored 09/24/19 17:37 Blood Pressure 141/91 H 09/24/19 17:31 Blood Pressure Position Supine 09/24/19 17:31 Pulse Oximetry 100 09/24/19 17:31 Oxygen Delivery Method Room Air 09/24/19 17:31 Oxygen Flow Rate 0 09/24/19 17:31 Pain Level 0 09/24/19 17:31 Sign Out <Sameer Asher MD - Last Filed: 09/24/19 19:53> Sign Out Data: Sign Out Comment: Follow-up CT scan and repeat troponin Last updated by Sameer Asher MD at 09/24/19 19:53
[2019-09-24 18:12] LABS: Abs Immature Grans 0.02 k/cumm (0.0-0.09); Absolute Basophil Count 0.01 k/cumm (0.0-0.2); Absolute Eosinophil Count 0.17 k/cumm (0.0-0.7); Absolute Lymphocyte Count 2.53 k/cumm (1.2-3.4); Absolute Monocyte Count 0.62 k/cumm (0.11-0.7); Absolute Neutrophil Count 5.63 k/cumm (1.2-6.7); Basophils % 0.1; Eosinophils % 1.9; HCT 40.2 % (36.0-46.0); HGB 13.1 g/dL (12.0-15.5); Immature Grans % 0.2 %; Lymphocytes % 28.2; Mean Corp. HGB Concentration 32.6 g/dL (32.0-36.0); Mean Corpuscular Hemoglobin 27.6 pg (27.0-33.0); Mean Corpuscular Volume 84.8 fL (80-95); Mean Platelet Volume 10.7 fL (8.0-11.0); Monocytes % 6.9; Neutrophils % 62.7; Platelet Count 252 x1000/uL (130-400); RBC 4.74 m/cumm (4.00-5.20); RBC Distribution Width 14.8 % (11.7-14.6); White Blood Cell Count 8.98 k/cumm (4.4-10.8)
[2019-09-24 18:13] LABS: Bilirubin Negative (Negative); Blood Negative (Negative); Clarity Clear (Clear); Glucose Negative (Negative); Ketones Negative (Negative); Leukocyte Esterase Negative (Negative); Nitrite Negative (Negative); Urobilinogen 0.2 EU/dL (Up TO 0.2)
[2019-09-24] MEDS: Normal Saline 1,000 ML 1000 ML IV (18:13)
[2019-09-24 18:16] LABS: Magnesium 1.9 mg/dL (1.8-2.4)
[2019-09-24 18:17] LABS: Troponin I < 0.05 ng/Ml (<0.06)
--- NOTE | 2019-09-24 18:26 | DI.VRAD_ITS ---
PROCEDURE INFORMATION: Exam: XR Chest, 2 Views Exam date and time: 09/24/2019 6:03 PM Age: 39 years old Clinical indication: Other: Palpatations TECHNIQUE: Imaging protocol: XR of the chest Views: 2 views. COMPARISON: No relevant prior studies available. FINDINGS: Lungs: Unremarkable. No consolidation. Pleural space: Unremarkable. No pleural effusion. No pneumothorax. Heart/Mediastinum: Unremarkable. No cardiomegaly. Bones/joints: Unremarkable. IMPRESSION: No acute findings. Dictated and Authenticated by: Amber March MD. Ordering:DEA Estrella MD
[2019-09-24 18:28] LABS: ALT 36 U/L (14-59); AST 17 U/L (15-37); Albumin 4.1 g/dL (3.4-5.0); Alkaline Phosphatase 111 U/L (46-116); Anion Gap 9.5 mmol/L (3-11); BUN 16 mg/dL (7-18); Bilirubin, Total 0.2 mg/dL (0.2-1.0); CO2 27.5 mmol/L (21.0-32.0); CREATININE 0.79 mg/dL (0.55-1.02); Calcium 9.3 mg/dL (8.5-10.1); Chloride 103 mmol/L (98-107); Glucose 89 mg/dL (74-106); Potassium 3.4 mmol/L (3.5-5.1); Sodium 140 mmol/L (136-145); Total Protein 8.3 g/dL (6.4-8.2)
[2019-09-24 19:35] LABS: TSH 0.81 uIU/mL (0.36-3.74)
--- NOTE | 2019-09-24 19:45 | DI.CT_ITS ---
EXAM: CT CHEST PE CTA CLINICAL HISTORY: Tachycardia, chest discomfort. TECHNIQUE: Imaging Protocol: Axial CT angiography was performed with multi-slice acquisition and mu lti-planar and/or 3D reconstructions. CONTRAST MATERIAL: Intravenous: Omnipaque 350 Contrast volume:100 mL COMPARISON: CT ABDOMEN PELVIS W from 04/02/2019 FINDINGS: Pulmonary Arteries: No evidence of filling defect to suggest pulmonary emboli. Tracheobronchial tree: Patent where visualized. Mediastinum and Rita: No dominant adenopathy or fluid collection. Pulmonary parenchyma: No consolidation or dominant measurable mass. No architectural distortion. Pleura: No effusion or pneumothorax. Heart: The heart is not dilated. No coronary artery calcifications are seen. Aorta: Thoracic aorta non-dilated. No dissection or aneurysm. Upper abdomen: Unremarkable. Bones: Normal. IMPRESSION: No evidence of pulmonary embolism, thoracic aortic dissection or aneurysm. DATA REPOSITORY: All CT scans at this facility are submitted to the National Radiology Data Registry (NRDR) Dose Index Registry (DIR) with the [employer] (A[employer]). RADIATION OPTIMIZATION: All CT scans at this facility use at least one of these dose optimization te chniques: automated exposure control; mA and/or kV adjustment per patient size (includes targeted exa ms where dose is matched to clinical indication); or iterative reconstruction.
[2019-09-24 19:48] LABS: D-Dimer 836 ng/mlFEU (<500)
[2019-09-24] MEDS: Omnipaque 350 MG/ML 100 ML BTL IJ (20:15)
[2019-09-24] MEDS: Normal Saline - Diluent 50 ML VIAL IV (20:16)
--- NOTE | 2019-09-24 20:33 | DI.VRAD_ITS ---
PROCEDURE INFORMATION: Exam: CT Angiography Chest With Contrast Exam date and time: 09/24/2019 7:50 PM Age: 39 years old Clinical indication: Type not specified; Patient HX: Upper chest pain and discomfort for a month or so TECHNIQUE: Imaging protocol: Computed tomographic angiography of the chest with intravenous contrast. 3D rendering: MIP and/or 3D reconstructed images were created by the technologist. Radiation optimization: All CT scans at this facility use at least one of these dose optimization techniques: automated exposure control; mA and/or kV adjustment per patient size (includes targeted exams where dose is matched to clinical indication); or iterative reconstruction. Contrast material: OMNIPAQUE 350; Contrast volume: 100 ml; Contrast route: IV; COMPARISON: CR XR CHEST 2V PA LATERAL 09/24/2019 6:03 PM FINDINGS: Pulmonary arteries: There is adequate opacification of blood within the main pulmonary outflow tract, right and left pulmonary arteries and major lobar and segmental branches to both lungs with no pulmonary embolism detected. Aorta: Unremarkable. No aortic aneurysm. No aortic dissection. Lungs: Unremarkable. No consolidation. No masses. Pleural space: Unremarkable. No pneumothorax. No pleural effusion. Heart: Unremarkable. No cardiomegaly. No pericardial effusion. Lymph nodes: Unremarkable. No enlarged lymph nodes. Bones/joints: Unremarkable. No acute fracture. Soft tissues: Unremarkable. IMPRESSION: No acute pulmonary artery embolism is identified. Dictated and Authenticated by: Moe Kitchen MD. Ordering:DEA Estrella MD
[2019-09-24 20:53] LABS: Troponin I < 0.05 ng/Ml (<0.06)
[2019-09-24] MEDS: LORazepam 2 MG/ML VIAL 0.5 MG IVP (21:35)
--- NOTE | 2019-10-02 08:45 | NUR.NOTE ---
Nursing Note: Work note mailed to patient. Kristen Torres.
== END 2019-09-24 22:35 | disposition home or self-care (01) ==
PROVIDERS: Emergency Medicine; Emergency Provider Physician Assistant; PCP Nurse Practitioner Family
DX: R00.2 Palpitations (principal); R07.89 Other chest pain; F41.9 Anxiety disorder, unspecified; R79.1 Abnormal coagulation profile
CPT/HCPCS: 36415; 71275; 80053; 81025; 93005; 96361; 96374; 99285; 71046; 81003; 83735; 84443; 84484; 85025; 85379; 93010; J2060; J3490

== ENCOUNTER 2019-10-23 10:06 | Outpatient (CLI) | payer MEDICAID, SELFPAY ==
[2019-10-23 11:48] LABS: Abs Immature Grans 0.02 k/cumm (0.0-0.09); Absolute Basophil Count 0.01 k/cumm (0.0-0.2); Absolute Eosinophil Count 0.13 k/cumm (0.0-0.7); Absolute Neutrophil Count 4.19 k/cumm (1.2-6.7); Basophils % 0.2; HGB 11.8 g/dL (12.0-15.5); Immature Grans % 0.3 %; Mean Corp. HGB Concentration 31.1 g/dL (32.0-36.0); Mean Corpuscular Hemoglobin 27.2 pg (27.0-33.0); Mean Corpuscular Volume 87.6 fL (80-95); Mean Platelet Volume 11.3 fL (8.0-11.0); Monocytes % 7.6; Neutrophils % 63.9; Platelet Count 226 x1000/uL (130-400); RBC 4.34 m/cumm (4.00-5.20); RBC Distribution Width 15.1 % (11.7-14.6); White Blood Cell Count 6.55 k/cumm (4.4-10.8)
[2019-10-23 12:12] LABS: ALT 23 U/L (14-59); AST 12 U/L (15-37); Albumin 3.7 g/dL (3.4-5.0); Alkaline Phosphatase 97 U/L (46-116); Anion Gap 7.8 mmol/L (3-11); BUN 24 mg/dL (7-18); Bilirubin, Total 0.2 mg/dL (0.2-1.0); CO2 28.2 mmol/L (21.0-32.0); CREATININE 0.74 mg/dL (0.55-1.02); Calcium 8.8 mg/dL (8.5-10.1); Calculated LDL 92 mg/dL (<100); Chloride 105 mmol/L (98-107); Cholesterol 156 mg/dL (<200); Glucose 91 mg/dL (74-106); HDL Cholesterol 48 mg/dL (40-60); Potassium 4.3 mmol/L (3.5-5.1); Sodium 141 mmol/L (136-145); TSH (W/Ref FT4) 0.64 uIU/mL (0.36-3.74); Total Protein 7.3 g/dL (6.4-8.2); Triglyceride 81 mg/dL (<150)
[2019-10-24 10:04] LABS: FSH 5.3 mIU/mL (See Note); Prolactin 5.4 ng/mL (See Table)
[2019-10-26 00:10] LABS: Testosterone, Total 20 ng/dL (8-60)
[2019-10-26 10:39] LABS: Estradiol, Mass Spectrometry 69 pg/mL; Estrone 79 pg/mL
== END 2019-10-23 10:26 ==
PROVIDERS: PCP Nurse Practitioner Family; Visit Provider Nurse Practitioner Family
DX: N91.1 Secondary amenorrhea (principal); R53.83 Other fatigue
CPT/HCPCS: 36415; 80053; 80061; 84403; 82670; 82679; 83001; 84146; 84443; 85025

== ENCOUNTER 2020-05-26 10:32 | Outpatient (CLI) | payer OTHER, MEDICAID, SELFPAY ==
--- NOTE | 2020-05-26 | DI.US_ITS ---
EXAM: US LOWER EXTREMITY VENOUS RT CLINICAL HISTORY: KNEE PAIN, RIGHT M25.561. TECHNIQUE: Lower extremity venous ultrasound performed using grayscale, color-flow, and spectral Dop pler analysis. COMPARISON: No exams were available for comparison FINDINGS: The common femoral, femoral and popliteal veins demonstrate normal compressibility, augmentation, and color Doppler. The posterior tibial veins are patent. The saphenous vein appears free of thrombus. No Isabel's cyst or hematoma is seen. IMPRESSION: No evidence of DVT. DATA REPOSITORY:
== END 2020-05-26 10:52 ==
PROVIDERS: PCP Nurse Practitioner Family; Visit Provider Nurse Practitioner Family
DX: M25.561 Pain in right knee (principal)
CPT/HCPCS: 93971

== ENCOUNTER 2020-09-08 10:52 | Outpatient (CLI) | payer OTHER, MEDICAID, SELFPAY ==
[2020-09-09 12:43] LABS: COVID-19 RT-PCR UVMMC Result Negative (Negative)
== END 2020-09-08 10:53 | disposition home or self-care (01) ==
LOC: LBO 10:53
PROVIDERS: PCP Nurse Practitioner Family; Visit Provider Nurse Practitioner Family
DX: Z20.822 Contact with and (suspected) exposure to COVID-19 (principal)
CPT/HCPCS: U0003

== ENCOUNTER 2020-09-15 16:08 | Emergency (ER) | payer OTHER, MEDICAID, SELFPAY ==
[2020-09-15 16:13] VITALS: PULSE 80; RESP 18; TEMP 36.5; O2SAT 100
--- NOTE | 2020-09-15 16:25 | W.ED.GENAD ---
Discharge Plan Disposition Patient Disposition: HOME Condition: Stable Discharge Details Clinical Impression: Abdominal pain Primary Care Provider: Ham Gruber ED Provider: Lazaro Vargas Home Meds and New Rx's Prescriptions: Continued ibuprofen 200 mg tablet 600 mg PO Q8H PRN (Reason: pain) Qty: 20 RF: 0 omeprazole 20 mg Capsule,Delayed Release(Dr/Ec) 20 mg PO DAILY RF: 0 hydroxyzine HCl 25 mg tablet 25 mg PO BID RF: 0 acetaminophen [Tylenol] 325 MG tablet 650 mg PO Q4H PRN PRNRF: 0 buspirone 5 mg Tablet 10 mg PO TID RF: 0 Discharge Instructions Instructions: Abdominal Pain (ED) Additional Instructions: Patient was verbally discharged. We discussed her benign laboratory values and CT imaging. Patient was given strict return precautions. Otherwise we will increase her omeprazole dose and follow-up with her primary care provider on Monday. Patient was comfortable with this plan and had no additional questions or concerns. Discharge Data Discharge Date/Time-TO BE ENTERED AT DEPARTURE: 09/15/20 20:10 Medical Decision Making This is a 40-year-old female, past medical history that includes anxiety, GERD, obesity, presenting to the ER for ongoing epigastric pain-pressure, [facility] had [facility] negative screening E[facility] and subsequently diagnosed with GERD, started on omeprazole. She states that the omeprazole seemed to help with the acid reflux into her esophagus and nausea but does not really changed the epigastric sensation. She does state that positioning and pressing on her stomach does seem to make symptoms improved. She also states that p.o. intake does seem to make the symptoms worse. She denies any chest pain or shortness of breath, extremely low suspicion for ACS, pneumonia, PE, etc. Differential includes but not excluded to gastritis, GERD, peptic ulcer disease, hiatal hernia, pancreatitis, biliary colic, H. pylori, etc. Will obtain CBC, CMP, lipase, urinalysis and reassess. I will also trial a GI cocktail. Upon reevaluation patient reports that the GI cocktail initially helped with her symptoms but she felt as though the medication wore off and her symptoms returned. Laboratory values are unremarkable for obvious emergent process. Discussed laboratory values with patient and discussed ongoing work-up and disposition. I could set her up for a right upper quadrant ultrasound tomorrow morning, refer her to surgery for potential endoscopy, and she is scheduled to follow-up with her primary care provider on Monday. We also discussed increasing her omeprazole dose to 40 mg daily, dietary changes, etc. We discussed option of CT imaging, pros and cons of radiation. At this time patient would prefer to have a CT. Patient will now be given a dose of IV Protonix. CT obtained and negative per radiology. Upon reevaluation no significant change in her symptoms. She was made aware of her negative CT results. We again discussed options. She is relieved that the CT imaging and laboratory values are unremarkable. She would prefer to take a more conservative approach, increasing her omeprazole, and primary care follow-up on Monday as already scheduled. She will decide then whether or not she would like to pursue an ultrasound as an outpatient and/or surgical referral for endoscopy however; she tells me now that she would like to avoid any procedures if at all possible. I feel as though this is a reasonable plan in the short-term however she was given strict return precautions and will follow up on Monday with her primary care provider. Medical Records Medical records reviewed: Yes I reviewed the patient's medical records. Imaging Data Radiologic Study: Attestation: I personally reviewed and interpreted this imaging study as follows: Imaging: CT Scan Radiologist's impression: CT abdomen pelvis read by radiology as no evidence for acute abnormality to account for symptoms. Lab Data Lab results reviewed: Yes I reviewed the patient's lab results. Lab results narrative: Laboratory Tests Range/Units 09/15/20 09/15/20 09/15/20 17:00 17:15 17:15 WBC (4.4-10.8) 10^3/uL 8.14 RBC (3.93-5.22) 10^6/uL 4.70 Hgb (11.2-15.7) g/dL 13.0 Hct (36.0-46.0) % 41.1 MCV (80-95) fL 87.4 MCH (27.0-33.0) pg 27.7 MCHC (32.0-36.0) % 31.6 L RDW (11.7-14.6) % 13.7 Plt Count (130-400) 10^3/uL 230 MPV (8.0-11.0) fL 10.3 Immature Gran % 0.1 Neutrophils % 69.0 Lymphocytes % 23.2 Monocytes % 5.9 Eosinophils % 1.6 Basophils % 0.2 Nucleated RBC % % 0 Absolute Neutrophils (1.2-6.7) 10^3/uL 5.61 Absolute Lymphocytes (1.2-3.4) 10^3/uL 1.89 Absolute Monocytes (0.1-0.8) 10^3/uL 0.48 Absolute Eosinophils (0.0-0.7) 10^3/uL 0.13 Absolute Basophils (0.0-0.2) 10^3/uL 0.02 Sodium (136-145) mmol/L 140 Potassium (3.5-5.1) mmol/L 3.5 Chloride (98-107) mmol/L 103 Carbon Dioxide (21.0-32.0) mmol/L 28.3 Anion Gap (3-11) mmol/L 8.7 BUN (7-18) mg/dL 14 Creatinine (0.55-1.02) mg/dL 0.8 Estimated GFR/1.73 m2 (mL/min/1.73m2) >= 60.00 Glucose (74-106) mg/dL 114 H Calcium (8.5-10.1) mg/dL 9.4 Total Bilirubin (0.2-1.0) mg/dL 0.2 AST (15-37) U/L 13 L ALT (14-59) U/L 28 Alkaline Phosphatase (46-116) U/L 140 H Total Protein (6.4-8.2) g/dL 8.7 H Albumin (3.4-5.0) g/dL 4.0 Lipase (73-393) U/L 86 Urine Color (Yellow) Yellow Urine Clarity (Clear) Clear Urine pH (5-8) 5.5 Ur Specific [place] (1.005-1.025) 1.025 Urine Protein (Negative) mg/dL Negative Urine Ketones (Negative) mg/dL Negative Urine Blood (Negative) Negative Urine Nitrite (Negative) Negative Urine Bilirubin (Negative) Negative Urine Urobilinogen (Up TO 0.2) EU/dL 0.2 Ur Leukocyte Esterase (Negative) Negative Urine Glucose (Negative) mg/dL Negative HPI General Mode of arrival: ambulatory. Date/Time Provider Initiated Documentation: 09/15/20 16:12. Limitations to Documentation: no limitations. Information obtained by: patient. HPI Narrative: This is a 40-year-old female with past medical history of asthma, anxiety, presented to the ER complaining of epigastric pain for approximately 1 week. She states that she went to the [facility] last week, had a normal EKG, and was placed on omeprazole for likely GERD. She is scheduled to be seen by her primary care provider on Monday for follow-up. She states that she has a history of GERD but that this feels worse and different. She has a fullness in her epigastric area that is associated with nausea, pain-pressure that is moderate in nature, and was associated with a sour taste in her mouth. After taking the omeprazole she states that her GERD-like symptoms in her throat, esophagus, and her nausea has resolved however the epigastric pain-pressure remains. It is made worse with eating or drinking. She states that she has been trying to have a rather bland diet and has not been drinking alcohol with her symptoms. She denies recent travel, bad food exposure, sick contacts. Denies fever, chest pain, shortness of breath. She states that occasionally the pain does radiate to her back. She denies any lower abdominal pain, lower back pain, dysuria, diarrhea or constipation. She states that if she pushes on the area or lies down it tends to help relieve some of the pressure but does not resolve it completely. Patient is a former smoker. She does believe that her anxiety does play somewhat of a role in her worsening symptoms however states that she would not be here if she is not as concerned that something was truly wrong. She denies any history of abdominal surgeries. Related Data Home Medications Medication Instructions Recorded Confirmed acetaminophen [Tylenol] 650 mg PO Q4H PRN PRN tab 08/01/17 09/15/20 ibuprofen 600 mg PO Q8H PRN #20 tab 03/16/19 09/15/20 buspirone 10 mg PO TID 09/24/19 09/15/20 hydroxyzine HCl 25 mg PO BID 09/15/20 09/15/20 omeprazole 20 mg PO DAILY 09/15/20 09/15/20 Previous Rx's Medication Instructions Recorded acetaminophen [Tylenol] 650 mg PO Q4H PRN PRN tab 08/01/17 ibuprofen 600 mg PO Q8H PRN #20 tab 03/16/19 Allergies Allergy/AdvReac Type Severity Reaction Status Date / Time Penicillins Allergy Intermediate Hives Unverified 09/15/20 16:21 morphine AdvReac Intermediate change in Unverified 09/15/20 16:21 BP General Stated Complaint: Abd Prob MARGO: 3 Review of Systems Constitutional Constitutional: Denies fever(s) ENT Ears, Nose, Mouth, and Throat: Denies neck pain and Denies sore throat Cardiovascular Cardiovascular: Denies chest pain and Denies dyspnea Respiratory Respiratory: Denies cough and Denies dyspnea Gastrointestinal Gastrointestinal: Reports abdominal pain, Denies constipation, Denies diarrhea, Reports nausea and Denies vomiting Genitourinary Genitourinary: Denies dysuria Musculoskeletal Musculoskeletal: Reports back pain, Denies neck pain, Denies numbness and Denies tingling Integumentary/Breasts Skin/Breast: Denies erythema Neurologic Neurologic: Denies numbness and Denies tingling [facility] Medical History Asthma Seasonal, winter. Uses Albuterol prn. Carpal tunnel syndrome, bilateral (06/16/17) H/O sebaceous cyst Left shoulder, episodic inflammatory outbreaks requiring incision and drainage. Hidradenitis suppurativa of left axilla Hidradenitis suppurativa of right axilla Family History Mother Thyroid disorder Grandmother Diabetes Daughter Age: 20 Lupus Daughter Age: 19 No problems noted. Daughter Age: 17 No problems noted. Daughter Age: 15 No problems noted. Social History Smoking/Tobacco Use Status: Former Tobacco Use Smoking risk assessment performed?: Yes Alcohol Intake: never Drug use: Never Substance use type: does not use Do you feel safe at home: Yes Do you feel safe in your relationship?: Yes Exam Const General: cooperative, healthy appearing, comfortable and no acute distress Orientation: alert and awake [facility] Head: normal to inspection, normocephalic and atraumatic Eyes General: appearance normal, both eyes and all related structures Conjunctivae: conjunctivae normal Sclera: sclerae normal Neck Neck: normal visual inspection, full ROM, trachea midline and supple Resp Effort & Inspection: normal respiratory effort and able to speak in complete sentences Auscultation: clear to auscultation bilaterally Cardio Rate: regular rate Rhythm: regular rhythm GI Inspection: normal to inspection and obesity Palpation: soft, not firm, no guarding, no pulsatile masses and tender in the epigastrum (Mild discomfort to moderate palpation); Kate's sign negative and with no rebound tenderness Auscultation: normal bowel sounds Back/Spine/Pelvis Back: no CVA tenderness and No back tenderness Skin General skin exam: no rashes or lesions noted Neuro General: patient alert, patient awake, moves all extremities and no focal motor deficits Cognition: normal cognition Speech: speech normal Gait: normal gait Sensory Exam: no sensory deficits noted Psych Appearance: grossly normal Mental Status: mental status grossly normal Course Vital Signs Vital signs: Vital Signs Temperature 36.5 C 09/15/20 16:13 Pulse 80 09/15/20 16:13 Respiratory Rate 18 09/15/20 16:13 Pulse Oximetry 100 09/15/20 16:13 Temperature 36.5 C 09/15/20 16:13 Temperature Source Skin 09/15/20 16:13 Pulse 80 09/15/20 16:13 Respiratory Rate 18 09/15/20 16:13 Respiratory Effort Non-Labored 09/15/20 16:23 Blood Pressure Position Sitting 09/15/20 16:13 Pulse Oximetry 100 09/15/20 16:13 Oxygen Delivery Method Room Air 09/15/20 16:13 Oxygen Flow Rate 0 09/15/20 16:13 Pain Level 6 09/15/20 16:13
[2020-09-15 17:21] LABS: Bilirubin Negative (Negative); Blood Negative (Negative); Clarity Clear (Clear); Glucose Negative (Negative); Ketones Negative (Negative); Leukocyte Esterase Negative (Negative); Nitrite Negative (Negative); Specific Gravity 1.025 (1.005-1.025); Urobilinogen 0.2 EU/dL (Up TO 0.2); pH 5.5 (5-8)
[2020-09-15 17:23] LABS: Abs Immature Grans 0.01 10^3/uL (0.0-0.06); Absolute Basophil Count 0.02 10^3/uL (0.0-0.2); Absolute Eosinophil Count 0.13 10^3/uL (0.0-0.7); Absolute Lymphocyte Count 1.89 10^3/uL (1.2-3.4); Absolute Monocyte Count 0.48 10^3/uL (0.1-0.8); Absolute Neutrophil Count 5.61 10^3/uL (1.2-6.7); Basophils % 0.2; Eosinophils % 1.6; HCT 41.1 % (36.0-46.0); Immature Grans % 0.1; Lymphocytes % 23.2; MCH 27.7 pg (27.0-33.0); MCHC 31.6 % (32.0-36.0); MCV 87.4 fL (80-95); MPV 10.3 fL (8.0-11.0); Monocytes % 5.9; Nucleated RBC 0 %; Platelet Count 230 10^3/uL (130-400); RDW 13.7 % (11.7-14.6); WBC 8.14 10^3/uL (4.4-10.8)
[2020-09-15 17:35] LABS: ALT 28 U/L (14-59); AST 13 U/L (15-37); Alkaline Phosphatase 140 U/L (46-116); Anion Gap 8.7 mmol/L (3-11); BUN 14 mg/dL (7-18); Bilirubin, Total 0.2 mg/dL (0.2-1.0); CO2 28.3 mmol/L (21.0-32.0); CREATININE 0.8 mg/dL (0.55-1.02); Calcium 9.4 mg/dL (8.5-10.1); Chloride 103 mmol/L (98-107); Glucose 114 mg/dL (74-106); Lipase 86 U/L (73-393); Potassium 3.5 mmol/L (3.5-5.1); Sodium 140 mmol/L (136-145); Total Protein 8.7 g/dL (6.4-8.2)
--- NOTE | 2020-09-15 18:00 | DI.CT_ITS ---
EXAM: CT ABDOMEN PELVIS W CLINICAL HISTORY: epigastric pain. TECHNIQUE: Imaging Protocol: Axial computed tomography images with coronal and sagittal reformatted images were created and reviewed CONTRAST MATERIAL: Intravenous: Omnipaque 350 Contrast volume:100 cc Oral: no COMPARISON: CT CT CHEST PE CTA from 09/24/2019 FINDINGS: ABDOMEN: Lung Bases: Normal where visualized. Liver: [id number] hepatic steatosis.. No measurable mass. Gallbladder and biliary tract: No radiodense calculus or dilation. Pancreas: Normal density, no abnormal calcifications or inflammatory process. Spleen: Normal. Kidneys: Normal size, contour and axis. No radiodense stones or obstructive uropathy. No masses seen. Adrenal glands: No masses seen. Abdominal Aorta: Abdominal portion non-dilated. Mild atherosclerotic changes. PELVIS: Bladder: Symmetric distention, no gross wall thickening. Bowel: Small hiatal hernia.No obstruction or bowel wall thickening. No evidence of appendicitis. Nor mal quantity of stool. Peritoneal cavity: No ascites, collection or mesenteric inflammatory response. Bones: Mild degenerative changes. Reproductive organs: Within normal limits. Lymph nodes: Unremarkable. Impression: Unremarkable CT scan of the abdomen and pelvis. RADIATION DOSE DELIVERED: 1,629.81mGy.cm Total DLP DATA REPOSITORY: All CT scans at this facility are submitted to the National Radiology Data Registry (NRDR) Dose Index Registry (DIR) with the [employer] (A[employer]). RADIATION OPTIMIZATION: All CT scans at this facility use at least one of these dose optimization te chniques: automated exposure control; mA and/or kV adjustment per patient size (includes targeted exa ms where dose is matched to clinical indication); or iterative reconstruction.
[2020-09-15] MEDS: Omnipaque 350 MG/ML 100 ML BTL IJ (19:24)
[2020-09-15] MEDS: Normal Saline - Diluent 50 ML VIAL IV (19:25)
[2020-09-15] MEDS: Normal Saline Flush 10 ML SYR IVP (19:26)
--- NOTE | 2020-09-15 19:28 | DI.VRAD_ITS ---
PROCEDURE INFORMATION: Exam: CT Abdomen And Pelvis With Contrast Exam date and time: 09/15/2020 6:08 PM Age: 40 years old Clinical indication: Abdominal pain; Patient HX: Epigastric pain for 1 week TECHNIQUE: Imaging protocol: Computed tomography of the abdomen and pelvis with contrast. Radiation optimization: All CT scans at this facility use at least one of these dose optimization techniques: automated exposure control; mA and/or kV adjustment per patient size (includes targeted exams where dose is matched to clinical indication); or iterative reconstruction. Contrast material: OMNIPAQUE 350; Contrast volume: 99 ml; Contrast route: INTRAVENOUS (IV); COMPARISON: CT ABDOMEN PELVIS W 04/02/2019 11:37 PM FINDINGS: Mediastinal space: Small hiatal hernia. Liver: Tiny hepatic dome lesions again seen, presumed small cysts. Gallbladder and bile ducts: Normal. No calcified stones. No ductal dilation. Pancreas: Normal. No ductal dilation. Spleen: Normal. No splenomegaly. Adrenal glands: Normal. No mass. Kidneys and ureters: Normal. No hydronephrosis. Stomach and bowel: Unremarkable. No obstruction. No mucosal thickening. Appendix: No evidence of appendicitis. Intraperitoneal space: Unremarkable. No free air. No significant fluid collection. Vasculature: Mild atherosclerotic change seen in the vasculature. Lymph nodes: Unremarkable. No enlarged lymph nodes. Urinary bladder: The bladder is not well distended. Reproductive: Unremarkable as visualized. Bones/joints: Unremarkable. No acute fracture. Soft tissues: Small, fat containing periumbilical hernia unchanged. IMPRESSION: No evidence for acute abnormality to account for symptoms. Dictated and Authenticated by: Malina Avalos MD. Ordering:GWEN Willis MD
[2020-09-15 20:10] VITALS: PULSE 80; RESP 18; TEMP 36.5; O2SAT 100
== END 2020-09-15 20:10 | disposition home or self-care (01) ==
LOC: ER 16:15
PROVIDERS: Emergency Provider Physician Assistant; PCP Nurse Practitioner Family
DX: R10.13 Epigastric pain (principal)
CPT/HCPCS: 36415; 80053; 81025; 83690; 99285; 74177; 81003; 85025; 99284; J3490

== ENCOUNTER 2020-12-22 19:18 | Emergency (ER) | payer OTHER, MEDICAID, SELFPAY ==
[2020-12-22 19:20] VITALS: BP 159/82; PULSE 98; RESP 18; TEMP 36.9; O2SAT 97
--- NOTE | 2020-12-22 19:23 | ED.GENADUL_ITS ---
Discharge Plan Disposition Patient Disposition: HOME Condition: Stable Discharge Details Clinical Impression: Abscess Primary Care Provider: Ham Gruber ED Provider: Karin Moore Home Meds and New Rx's Prescriptions: New cephalexin 500 mg capsule 500 mg PO QID 5 Days Qty: 20 RF: 0 sulfamethoxazole-trimethoprim [Bactrim DS] 800-160 mg tablet 1 tab PO BID 5 Days Qty: 10 RF: 0 Continued ibuprofen 200 mg tablet 600 mg PO Q8H PRN (Reason: pain) Qty: 20 RF: 0 omeprazole 20 mg Capsule,Delayed Release(Dr/Ec) 20 mg PO DAILY RF: 0 hydroxyzine HCl 25 mg tablet 25 mg PO HS PRNRF: 0 acetaminophen [Tylenol] 325 MG tablet 650 mg PO Q4H PRN PRNRF: 0 buspirone 5 mg Tablet 10 mg PO TID RF: 0 Discharge Instructions Instructions: Cephalexin (By mouth), Sulfamethoxazole/Trimethoprim (By mouth), Abscess (ED) Additional Instructions: Your abscess was drained again today. Please keep packing in until you are reevaluated by your primary care in 2 days. You may change the dressing cover if needed. Please take the antibiotics as prescribed. Even if symptoms improve, please take the entire course. Culture of abscess has been sent. A referral for general surgery for your chronic cyst has also been sent. Follow-up with them once you are healed from your current abscess. If you develop fever/chills, or other new/worsening symptoms please seek care urgently once again. Referrals: Ham Gruber, HEALTH SERVICE COORDINATOR [Primary Care Provider] - Discharge Data Discharge Date/Time-TO BE ENTERED AT DEPARTURE: 12/22/20 20:10 Medical Decision Making Patient is a pleasant 40 year old female presenting today with c/c of infected cyst. She reports she has had a cyst on her back x 20 years that intermittently flairs and becomes infected. Reports that this happened about one week ago. Was seen by PCP who drained the area and started on Keflex. Wound was closed with adhesive after initial drainage. She states that pain has increased since. De nies fevers/chills. On exam, patient appears nontoxic. She has area of fluctuance, swelling and er ythema on the left side of her upper back consistent with abscess and surrounding celluluitis. Area is 3cm in diameter with surrounding erythema approximately 5cm in diameter. The area of concern for abscess does appear to have multiple collections, concerning for locuations. Explored with US. Focal swelling is fluid filled, surrounding indurated tissue has no flud collection but appears inflammed. She and I discussed risks/benefits as well as expected procedural steps associated with I&D of the abscess. She voices understanding and wishes to proceed. Using standard sterile technique, the skin was placed, and and anesthetized. The incision was made along previous area of scar which was lateral to the most recent incision made by primary care. The abscess was then incised and thick pu rulent discharge admitted. This was sent for culture. This does appear to be loculated and has had recurrence, I am concerned for MRSA and plan to cover with Keflex and Bactrim. Loculations were broken up with curved hemostat. Abscess was flushed. Abscess packed. Patient tolerated procedure well. Dressing applied. She has appointment with PCP in 2 days, advised that PCP can evaluate and check packing at that time. Return precautions were discussed. Started on Keflex and Bactrim. All of her quesitons and concerns were addressed, she is in agreement with this plan. HPI General Mode of arrival: ambulatory . Date/Time Provider Initiated Documentation: 12/22/20 19:22 . Limitations to Documentation: no limitations . Information obtained by: patient and RN notes reviewed . History of Present Illness 40 year old F presents to the emergency department with the chief complaint of cyst on back, described as moderate, with intensity rated at 3. Quality is described as aching, and is localized to the back. Patient reports no radiation. Patient started experiencing this day(s) and it has been constant. No relieving factors improve symptom(s), No exacerbating f actors reported . Patient notes no other symptoms.. Patient did receive the following treatments prior to arrival, other (lanced by PCP 4 days ago) Related Data Home Medications Medication Instructions Recorded Confirmed acetaminophen [Tylenol] 650 mg PO Q4H PRN PRN tab 08/01/17 12/22/20 ibuprofen 600 mg PO Q8H PRN #20 tab 03/16/19 12/22/20 buspirone 10 mg PO TID 09/24/19 12/22/20 hydroxyzine HCl 25 mg PO HS PRN 09/15/20 12/22/20 omeprazole 20 mg PO DAILY 09/15/20 12/22/20 cephalexin 500 mg PO QID 5 Days #20 cap 12/22/20 sulfamethoxazole-trimethoprim 1 tab PO BID 5 Days #10 tab 12/22/20 [Bactrim DS] Previous Rx's Medication Instructions Recorded acetaminophen [Tylenol] 650 mg PO Q4H PRN PRN tab 08/01/17 ibuprofen 600 mg PO Q8H PRN #20 tab 03/16/19 cephalexin 500 mg PO QID 5 Days #20 cap 12/22/20 sulfamethoxazole-trimethoprim 1 tab PO BID 5 Days #10 tab 12/22/20 [Bactrim DS] Allergies Allergy/AdvReac Type Severity Reaction Status Date / Time Penicillins Allergy Intermediate Hives Unverified 12/22/20 19:25 morphine AdvReac Intermediate change in Unverified 12/22/20 19:25 BP General Stated Complaint: RashLesion MARGO: 3 Review of Systems Constitutional Constitutional: Reports as per HPI, Denies chills and Denies fever(s) Musculoskeletal Musculoskeletal: Reports as per HPI Integumentary/Breasts Skin/Breast: Reports as per HPI Neurologic Neurologic: Reports as per HPI, Denies sensory deficit and Denies paresthesias [facility] Medical History Asthma Seasonal, winter. Uses Albuterol prn. Carpal tunnel syndrome, bilateral (06/16/17) H/O sebaceous cyst Left shoulder, episodic inflammatory outbreaks requiring incision and drainage. Hidradenitis suppurativa of left axilla Hidradenitis suppurativa of right axilla Family History Mother Thyroid disorder Grandmother Diabetes Daughter Age: 20 Lupus Daughter Age: 19 No problems noted. Daughter Age: 17 No problems noted. Daughter Age: 16 No problems noted. Social History Smoking/Tobacco Use Status: Former Tobacco Use Smoking risk assessment performed?: Yes Alcohol Intake: never Drug use: Never Substance use type: does not use Do you feel safe at home: Yes Do you feel safe in your relationship?: Yes Exam Const General: cooperative, healthy appearing, comfortable, no acute distress and well developed Nutritional Appearance: average body habitus and well nourished Orientation: alert and awake Resp Effort & Inspection: normal respiratory effort, able to speak in complete sentences and no respiratory distress Cardio Rate: regular rate Rhythm: regular rhythm Back/Spine/Pelvis Back/spine/pelvis image: 1. Patient has area of swelling, erythema, fluctuance consistent with abscess with surrounding cellulitis. Surrounding area of fluctuance tissue is indurated. Skin General skin exam: erythema (around abscess) Neuro General: patient alert and patient awake Cognition: normal cognition Speech: speech normal Gait: normal gait Sensory Exam: no sensory deficits noted Psych Appearance: grossly normal and well kempt Mental Status: mental status grossly normal Speech and Movement: speech and movement normal Course Vital Signs Vital signs: Vital Signs Temperature 36.9 C 12/22/20 19:20 Pulse 98 H 12/22/20 19:20 Respiratory Rate 18 12/22/20 19:20 Blood Pressure 159/82 H 12/22/20 19:20 Pulse Oximetry 97 12/22/20 19:20 Temperature 36.9 C 12/22/20 19:20 Temperature Source Oral 12/22/20 19:20 Pulse 98 H 12/22/20 19:20 Respiratory Rate 18 12/22/20 19:20 Blood Pressure 159/82 H 12/22/20 19:20 Blood Pressure Position Sitting 12/22/20 19:20 Pulse Oximetry 97 12/22/20 19:20 Oxygen Delivery Method Room Air 12/22/20 19:20 Oxygen Flow Rate 0 12/22/20 19:20 Pain Level 3 12/22/20 19:20 Procedures Abscess I/D Site: Back Side (if applicable): Left Sedation/analgesia: None Local Anesthetic: Lidocaine 1% Amount of anesthesia used (mL): 8 Technique: Incised with #11 Blade Amount of fluid expressed (mL): 5 Irrigation: Yes Packing used?: Iodoform
--- NOTE | 2020-12-22 19:56 | NUR.NOTE ---
Nursing Note: referal sent to surgery to follow up for cyst on back 12/22/20
[2020-12-22] MEDS: Sulfameth/Trimeth DS, 2 TABS/BTL 1 TAB PO (20:10)
[2020-12-22] MEDS: Cephalexin 500 MG CAP, 4 CAPS/BTL PO (20:10)
== END 2020-12-22 20:10 | disposition home or self-care (01) ==
PROVIDERS: Emergency Provider Physician Assistant; PCP Nurse Practitioner Family
DX: L02.212 Cutaneous abscess of back [any part, except buttock and flank] (principal)
CPT/HCPCS: 10061; 87070; 87205

== ENCOUNTER 2021-02-09 12:59 | Outpatient (REF) | payer OTHER, MEDICAID, SELFPAY ==
--- NOTE | 2021-02-09 11:30 | PAPFT_PTH ---
PATIENT: Susi Cardozo LOC: [facility]#:[id number] AGE/SX: 40/F ROOM: RE02/09/[address]: Ham Gruber : 1980 BED: DIS: 02/09/2021 SPEC #: [id number] RECD: 02/10/21 09:40 STATUS: SHERYL REeVrnon #: [id number] YON: 02/09/21 11:[address]: Ham Gruber [facility]PT[facility] Cytology RECD BY: Carmencita Lowry Tissues: 1 - CX/ENDOCX FOR PAP SMEARS Procedures: PAP THIN PREP/UVM Screening HPV DNA PROBE Comments: [id number]
[2021-02-09 13:58] LABS: HCT 40.5 % (36.0-46.0); HGB 12.8 g/dL (11.2-15.7); MCH 27.1 pg (27.0-33.0); MCHC 31.6 % (32.0-36.0); MCV 85.6 fL (80-95); MPV 11.2 fL (8.0-11.0); Platelet Count 230 10^3/uL (130-400); RBC 4.73 10^6/uL (3.93-5.22); RDW 13.4 % (11.7-14.6); RDW-SD 42.1 fL; WBC 7.75 10^3/uL (4.4-10.8)
[2021-02-09 14:43] LABS: ALT 28 U/L (14-59); AST 11 U/L (15-37); Albumin 3.8 g/dL (3.4-5.0); Alkaline Phosphatase 127 U/L (46-116); BUN 19 mg/dL (7-18); Bilirubin, Total 0.3 mg/dL (0.2-1.0); CREATININE 0.8 mg/dL (0.55-1.02); Calcium 9.1 mg/dL (8.5-10.1); Calculated LDL 98 mg/dL (<100); Chloride 104 mmol/L (98-107); Cholesterol 160 mg/dL (<200); Glucose 101 mg/dL (74-106); HDL Cholesterol 51 mg/dL (40-60); Potassium 4.2 mmol/L (3.5-5.1); Sodium 142 mmol/L (136-145); TSH (W/Ref FT4) 0.48 uIU/mL (0.36-3.74); Total Protein 7.6 g/dL (6.4-8.2); Triglyceride 58 mg/dL (<150)
[2021-02-09 16:54] LABS: Hemoglobin A1C 6.1 % (<5.7)
== END 2021-02-09 13:00 | disposition home or self-care (01) ==
LOC: NCHCN 12:59
PROVIDERS: PCP Nurse Practitioner Family; Visit Provider Nurse Practitioner Family
DX: Z68.43 Body mass index [BMI] 50.0-59.9, adult (principal); Z12.4 Encounter for screening for malignant neoplasm of cervix; Z11.51 Encounter for screening for human papillomavirus (HPV)
CPT/HCPCS: 80053; 80061; 85027; 88142; 83036; 84443; 87624

== ENCOUNTER 2021-05-03 10:19 | Outpatient (CLI) | payer OTHER, MEDICAID, SELFPAY ==
--- NOTE | 2021-05-03 10:30 | DI.MAMMO_ITS ---
Exam(s) MAMMO SCREENING EXAM: MAMMO SCREENING CLINICAL HISTORY: SCREENING, Z12.39, PRE BARIATRIC SURGERY. TECHNIQUE: Bilateral full field digital CC and MLO mammographic images were obtained with 3D tomosyn thesis and utilizing computer aided detection (CAD). COMPARISON: None. This is a baseline screening mammogram on this 40-year-old patient FINDINGS: There are no CAD designations. No spiculated masses nor malignant-appearing microcalcification groups. There is an oval noncalcified nodule posteriorly in right breast located 11 cm in from the nipple, me asuring 3.5 by 2.5 millimeters. This is probably a small cyst or lymph node. No previous for compar eliz. There is no significant architectural distortion nor skin thickening-retraction. IMPRESSION: No radiographic evidence of malignancy in left breast. Small benign-appearing 3.5 x 2.5 millimeter nodule posteriorly in the right breast. Ultrasound recom mended to determine if this is solid, cystic, or benign intramammary lymph node. BI-RADS Category 0 - Assessment Incomplete: Need additional imaging evaluation Breast Density - Category B - Scattered areas of fibroglandular density Breast density Category C or D implies that the patient has dense breast tissue. Dense breast tissue can make it harder to find cancer on a mammogram. Dense breast tissue is also associated with an incr eased risk of breast cancer. This information about the result of the mammogram report was provided to the patient to raise their awareness. Use this report when you speak with the patient about their risks for breast cancer, which includes their family history. At that time, you may recommend additional screening tests (Ultrasoun d or MRI) as these tests may add significant information. A negative radiographic report should not delay biopsy if a dominant or clinically suspicious mass is present. Up to ten percent of cancers are not identified on mammography. A negative report may reinforce clinical impression. Adenosis and dense breasts may obscure an underlying neoplasm. False positive reports average 6 to 10%. Patient will receive a letter notifying them of these results.
== END 2021-05-03 10:39 ==
PROVIDERS: PCP Nurse Practitioner Family; Visit Provider Nurse Practitioner Family
DX: Z12.31 Encounter for screening mammogram for malignant neoplasm of breast (principal); R92.8 Other abnormal and inconclusive findings on diagnostic imaging of breast; N63.15 Unspecified lump in the right breast, overlapping quadrants
CPT/HCPCS: 77063; 77067

== ENCOUNTER 2021-09-16 13:41 | Outpatient (CLI) | payer OTHER, MEDICAID, SELFPAY ==
[2021-09-20 15:11] LABS: TB Interpretation Negative (Negative); TB1 Ag minus Nil 0.02 IU/ml; TB2 Ag minus Nil 0.01 IU/mL
== END 2021-09-16 13:42 | disposition home or self-care (01) ==
LOC: LBO 13:47
PROVIDERS: PCP Nurse Practitioner Family; Visit Provider Physician Assistant
DX: Z11.1 Encounter for screening for respiratory tuberculosis (principal)
CPT/HCPCS: 36415; 86480

== ENCOUNTER 2021-10-26 17:31 | Outpatient (REF) | payer OTHER, MEDICAID, SELFPAY | END 2021-10-26 17:32 | disposition home or self-care (01) | LOC: LBN 17:31 | PROVIDERS: PCP Nurse Practitioner Family; Visit Provider Nurse Practitioner Family | DX: R10.30 Lower abdominal pain, unspecified (principal) | CPT/HCPCS: 87086 ==

== ENCOUNTER → 2021-11-01 01:10 | Outpatient (CLI) | payer MEDICAID, SELFPAY | PROVIDERS: PCP Nurse Practitioner Family; Visit Provider Nurse Practitioner Family ==

== ENCOUNTER → 2021-12-06 00:35 | Outpatient (CLI) | payer MEDICAID, SELFPAY | PROVIDERS: PCP Nurse Practitioner Family; Visit Provider Physician Assistant ==

== ENCOUNTER → 2022-05-04 02:11 | Outpatient (CLI) | payer OTHER, MEDICAID, SELFPAY ==
--- NOTE | 2022-05-04 | DI.MAMMO_ITS ---
Exam(s) MAMMO SCREENING EXAM: MAMMO SCREENING CLINICAL HISTORY: SCREENING,Z12.39, H/O ABNL MAMMO TECHNIQUE: Mammograms were interpreted according to the usual protocol including computer analysis w ith CAD system, tomosynthesis and C-view imaging. COMPARISON: FINDINGS: The breasts are of moderate density with fairly symmetrical distribution of fibroglandular tissue. N o dominant mass or clumped microcalcification is identified in either breast. The current examinatio n is compared with previous examinations including April 2021 and there has been no gross interva l change in appearance in comparison with the prior studies. IMPRESSION: No specific evidence of malignancy at this time. Routine screening examinations are suggested at yea rly intervals in this age group according to the ACR guidelines. BI-RADS Category 1 - Negative Breast Density - Category B - Scattered areas of fibroglandular density
== END ==
PROVIDERS: Visit Provider Physician Assistant
DX: Z12.31 Encounter for screening mammogram for malignant neoplasm of breast (principal)
CPT/HCPCS: 77063; 77067

== ENCOUNTER 2024-04-25 01:21 | Outpatient (CLI) | payer MEDICAID, SELFPAY ==
--- NOTE | 2024-04-25 | DI.MAMMO_ITS ---
Exam(s) MAMMO SCREENING EXAM: MAMMO SCREENING CLINICAL HISTORY: SCREENING MAMMO Z12.31. TECHNIQUE: Bilateral full field digital CC and MLO mammographic images were obtained with 3D tomosyn thesis and utilizing computer aided detection (CAD). COMPARISON: Prior mammograms were reviewed. FINDINGS: There has been no significant change in the appearance and distribution of the fibroglandular tissue. Breast have decreased in size due to patient's significant weight loss. No CAD designations. There are no new spiculated masses nor malignant appearing microcalcification groups. Previously present small benign-appearing nodule posteriorly in the right breast up against the chest wall remains stable and has appearance of benign lymph node. There is no significant architectural distortion nor skin thickening-retraction. IMPRESSION: No radiographic evidence of malignancy. BI-RADS Category 1 - Negative Breast Density - Category B - Scattered areas of fibroglandular density Breast density Category C or D implies that the patient has dense breast tissue. Dense breast tissue can make it harder to find cancer on a mammogram. Dense breast tissue is also associated with an incr eased risk of breast cancer. This information about the result of the mammogram report was provided to the patient to raise their awareness. Use this report when you speak with the patient about their risks for breast cancer, which includes their family history. At that time, you may recommend additional screening tests (Ultrasoun d or MRI) as these tests may add significant information. A negative radiographic report should not delay biopsy if a dominant or clinically suspicious mass is present. Up to ten percent of cancers are not identified on mammography. A negative report may reinforce clinical impression. Adenosis and dense breasts may obscure an underlying neoplasm. False positive reports average 6 to 10%. Patient will receive a letter notifying them of these results.
== END 2024-04-25 01:41 ==
LOC: DI 01:22
PROVIDERS: PCP Physician Assistant; Visit Provider Physician Assistant
DX: Z12.31 Encounter for screening mammogram for malignant neoplasm of breast (principal)
CPT/HCPCS: 77063; 77067